=== PATIENT | male | born 1985 | race Caucasian/White ===

== ENCOUNTER 2020-03-04 14:44 | Emergency (ER) | payer OTHER ==
[~2020-03-04] VITALS: Ht 180.3 cm; Wt 88.6 kg
[2020-03-04 15:15] VITALS: BP 128/79
== END 2020-03-04 15:43 | disposition home or self-care (01) ==
LOC: EMS 14:45
DX: Z71.1 Person with feared health complaint in whom no diagnosis is made (principal); X02.1XXA Exposure to smoke in controlled fire in building or structure, initial encounter; Y93.89 Activity, other specified; Y92.89 Other specified places as the place of occurrence of the external cause; Y99.0 Civilian activity done for income or pay